=== PATIENT | male | born 1970 | race Caucasian/White ===

== ENCOUNTER → 2018-12-03 12:27 | Outpatient (CLI) | payer OTHER, SELFPAY ==
--- NOTE | 2018-12-03 13:02 | EKG12_ITS ---
Test Reason : PREOP Blood Pressure : / mmHG Vent. Rate : 070 BPM Atrial Rate : 070 BPM P-R Int : 132 ms QRS Dur : 084 ms QT Int : 366 ms P-R-T Axes : 065 064 065 degrees QTc Int : 395 ms Normal sinus rhythm with sinus arrhythmia Normal ECG No previous ECGs available Confirmed by ZACH TORRES ([id number]), editorial director NADIA MOURA ([id number]) on 12/03/2018 1:22:32 PM Referred By: Theron Moura Confirmed By:ZACH TORRES
--- OUTSIDE RECORDS SUMMARY | 2019-02-04 11:04 | XMS RPT_ITS ---
:1970 Author Organization [facility] Care Team Providers Name Role Phone Theron Zuluaga Attending Unavailable Theron Zuluaga Referring Unavailable Zaid Warren Primary Care Unavailable PROBLEMS PROBLEMS No Problem Records FoundPROCEDURES PROCEDURES No Procedure Records FoundRESULTS RESULTS 12 LEAD ELECTROCARDIOGRAM Observed: 12/03/2018 Status: F Source: LIND 1:23 PM [facility] REPOSITORY [facility] Cardiovascular Services [address] [place] [id number] 12 Lead EKG 12/03/18 1312 MR#: [id number] Acct: [id number] Name: AARON ZULUAGA Rep #: [id number] : 1970 48 From: Zach Aggarwal MD Attending Dr: Theron Zuluaga MD Status: REG CLI Ordering Dr: Theron Zuluaga MD Date: 12/03/18 Location: [facility] Sex: M C Admitted: Test Reason : PREOP Blood Pressure : / mmHG Vent. Rate : 070 BPM Atrial Rate : 070 BPM P-R Int : 132 ms QRS Dur : 084 ms QT Int : 366 ms P-R-T Axes : 065 064 065 degrees QTc Int : 395 ms Normal sinus rhythm with sinus arrhythmia Normal ECG No previous ECGs available Confirmed by ZACH AGGARWAL ([id number]), features editor NADIA ZULUAGA ([id number]) on 12/03/2018 1:22:32 PM Referred By: Theron Zuluaga Confirmed By:ZACH AGGARWAL 12/03/18 1322 Date Zach Aggarwal MD CC: Zaid Warren, DO; Theron Zuluaga MD Signed PROGRESS Observed: 01/04/2018 Status: COMPLETED Source: MUTUAL 8:[address] [facility] REPOSITORY HNO ID: [id number] Author: Verona Flores) Aurea Service: (none) Author Type: Physician Race Relations Adviser Type: Progress Notes Filed: 01/04/2018 8:45 AM Note Text: Subjective HPI Pt presents with left ear feeling clogged. He does get allergies in the winter. He tried some sudafed and other allergy pills. No nasal congestion, cough or watery eyes. He is having trouble hearing out of that ear as well. He feels like he is wearing ear plugs. Review of Systems Constitutional: Negative. HENT: Positive for ear pain. Eyes: Negative. Respiratory: Negative. Cardiovascular: Negative. Gastrointestinal: Negative. Genitourinary: Negative. Musculoskeletal: Negative. Skin: Negative. All other systems reviewed and are negative. No past medical history on file. Current Outpatient Prescriptions: amoxicillin (AMOXIL) 875 mg tablet Take 1 tablet by mouth twice daily for 10 days. Disp: 20 tablet Rfl: 0 No current facility-administered medications for this visit. No past surgical history on file. No family history on file. Social History Substance Use Topics - Smoking status: Never Smoker - Smokeless tobacco: Never Used - Alcohol use Not on file BP 118/80 Pulse 68 Temp 36.3 ?C (97.4 ?F) (Tympanic) Resp 16 Wt 76.5 kg (168 lb 9.6 oz) Objective Physical Exam Constitutional: He is oriented to person, place, and time and well-developed, well-nourished, and in no distress. HENT: Head: Normocephalic and atraumatic. Right Ear: Tympanic membrane, external ear and ear canal normal. Left Ear: External ear and ear canal normal. Tympanic membrane is erythematous and bulging. Nose: Nose normal. Mouth/Throat: Oropharynx is clear and moist. Neck: Normal range of motion. Neck supple. Cardiovascular: Normal rate, regular rhythm and normal heart sounds. Pulmonary/Chest: Effort normal and breath sounds normal. He has no wheezes. He has no rales. Lymphadenopathy: He has no cervical adenopathy. Neurological: He is alert and oriented to person, place, and time. Skin: Skin is warm and dry. No rash noted. Psychiatric: Affect and judgment normal. Nursing note and vitals reviewed. ASSESSMENT/PLAN: 1. Acute otitis media, left - ICD9: 382.9, ICD10: H66.92 - Will begin treatment with Amoxicillin for 10 days - The patient should also be given calritin for the first 5-7 days of treatment. - Supportive care with plenty of fluids, rest, and analgesia prn. - Follow up in one week if symptoms persist or worsen. Verona Villar PA-C ALLERGIES ALLERGIES DATE TYPE / CODE NAME / CODE REACTION SEVERITY SOURCE Drug NO KNOWN [facility] Class/33901 ALLERGIES [facility] 1003(SNOMED Repository CT) ENCOUNTERS ENCOUNTERS ADMIT/DISCHARGE ACCOUNT ADMITTING ENCOUNTER LOCATION SOURCE NUMBER CLASS 12/03/2018 [id number] [facility] ing:[facility] Repository 01/04/2018/01/06/20 [id number] Ambulatory [address] Repository PAYERS PAYERS ENCOUNTER GUARANTOR PAYER SUBSCRIBER SOURCE 12/03/2018 AARON Feliz Primary AARON [id number] Insurance:DOMENIC WATSONB: [facility] [id number] [id number] Repository [address]Gcc: ([phone]) Date:2018-12-03 [phone] () 12/03/2018 Secondary NOT GIVENJANNA [place] Insurance:SELF PAY [facility] Number: Effective Repository Date:2018-12-03
== END ==
PROVIDERS: Family Provider Family Medicine; PCP Family Medicine; Referring Provider Orthopaedic Surgery; Visit Provider Orthopaedic Surgery
DX: Z01.810 Encounter for preprocedural cardiovascular examination (principal)
CPT/HCPCS: 93005